=== PATIENT | female | born 1955 | race Caucasian/White ===

== ENCOUNTER 2021-12-16 13:57 | Outpatient (CLI) | payer MEDICARE, BC | END 2021-12-16 13:58 | disposition home or self-care (01) | LOC: BICULT 13:57 | PROVIDERS: ATTEND Urology | DX: N30.10 Interstitial cystitis (chronic) without hematuria (principal); R30.0 Dysuria; R35.0 Frequency of micturition; G89.4 Chronic pain syndrome; N28.89 Other specified disorders of kidney and ureter | CPT/HCPCS: 36415; 76770; 80048 ==

== ENCOUNTER 2022-01-29 12:01 | Outpatient (CLI) | payer MEDICARE, BC ==
[2022-01-29 13:39] LABS: Bilirubin Neg (Negative); Blood, Urine Negative (Negative); Clarity Clear (Clear); Glucose, Urine (Dipstick) Normal (Negative); Ketone, Urine Negative (Negative); Leukocyte 25 (Negative); Nitrite Negative (Negative); Protein, Urine (Dipstick) Negative (Neg-Trace); Specific Gravity, Urine 1.005 (1.002-1.036); Urobilinogen Normal mg/dL (Less than 2)
[2022-01-29 13:48] LABS: Mean Corpuscular HGB CONC 31.9 g/dL (32.0-36.0); Mean Corpuscular Volume 94.2 fl (81.6-98.3); Mean Platelet Volume 9.8 fl (7.4-10.4); Platelet Count 297 10x3/uL (150-450); RBC Distribution Width 14.3 % (11.5-14.5); Red Blood Cell (RBC) Count 4.33 10x6/uL (3.90-5.03); White Blood Cell (WBC) Count 7.2 10x3/uL (3.5-10.5)
[2022-01-29 13:55] LABS: Bacteria/HPF None Seen HPF (None Seen); RBC/HPF None Seen HPF (0-3); Squamous Epithelial 0-3 HPF (0-3); WBC/HPF None Seen HPF (0-3)
[2022-01-29 13:56] LABS: INR-International Normal Ratio 0.9; PTT 26.7 sec (22.0-33.0)
[2022-01-29 14:01] LABS: Anion Gap 13 mmol/L (10-20); BUN (Urea Nitrogen) 13 mg/dL (9.8-20.1); Calc. Creatinine Clearance 0 mL/min (70-130); Calcium 9.4 mg/dL (7.8-10.44); Carbon Dioxide 28 mmol/L (23-31); Chloride 105 mmol/L (98-107); Estimated GFR 74; Glucose 89 mg/dL (80-115); Potassium 4.5 mmol/L (3.5-5.1); Sodium 141 mmol/L (136-145)
== END 2022-01-29 12:02 | disposition home or self-care (01) ==
LOC: LABBT 12:01
PROVIDERS: ATTEND Urology
DX: Z01.818 Encounter for other preprocedural examination (principal); N30.10 Interstitial cystitis (chronic) without hematuria; N28.9 Disorder of kidney and ureter, unspecified; Z20.822 Contact with and (suspected) exposure to COVID-19
CPT/HCPCS: 80048; 81001; 85027; 85610; 85730; 87086; 87811; 93005; 93010

== ENCOUNTER 2022-02-01 13:15 | Outpatient (CLI) | payer MEDICARE, BC ==
[~2022-02-01 13:15] MED LIST: Magnevist 469MG/ML 20 ML VIAL ONE
== END 2022-02-01 13:16 | disposition home or self-care (01) ==
LOC: TBSIIMAG 13:15
PROVIDERS: ATTEND Urology
DX: N28.9 Disorder of kidney and ureter, unspecified (principal); Z88.9 Allergy status to unspecified drugs, medicaments and biological substances; K86.2 Cyst of pancreas
CPT/HCPCS: 74183; A9579

== ENCOUNTER 2022-02-03 05:40 | Day surgery (SDC) | payer MEDICARE, BC ==
[2022-02-02 09:21] VITALS: BMI 27.2
[2022-02-03] MEDS ORDERED: Midazolam HCl 2 mg/2 ml Vial ONE (06:40)
[2022-02-03] MEDS ORDERED: fentaNYL Citrate/PF 100 MCG/2 ML SYRINGE ONE (06:40)
[2022-02-03] MEDS ORDERED: SUGAMMADEX SODIUM 200 MG/2 ML VIAL ONE (07:02)
[2022-02-03] MEDS ORDERED: diphenhydrAMINE 50 MG/ML VIAL ONE (07:05)
[2022-02-03] MEDS ORDERED: Ioversol 68 % 50 ML VIAL ONE (07:11)
[2022-02-03] MEDS ORDERED: Scopolamine 1.5 mg/72 hour Patch ONE (07:13)
[2022-02-03] MEDS ORDERED: Levofloxacin 500 mg/D5W 100 ml Premix Bag ONE (07:19)
[2022-02-03] MEDS ORDERED: Phenylephrine 10 MG/ML VIAL ONE (07:28)
[2022-02-03] MEDS ORDERED: Ketorolac Tromethamine 30 MG/ML VIAL ONE (07:28)
[2022-02-03] MEDS ORDERED: PROPOFOL 200 MG/20 ML VIAL ONE (07:28)
[2022-02-03] MEDS ORDERED: Metoclopramide HCl 10 MG/2 ML VIAL ONE (07:28)
[2022-02-03] MEDS ORDERED: Rocuronium Bromide 10 MG/ML (10ML VIAL) ONE (07:28)
[2022-02-03] MEDS ORDERED: Lidocaine 1% MPF 2 ML VIAL ONE (07:28)
[2022-02-03] MEDS ORDERED: Ondansetron PF 4 MG/2 ML Vial ONE (07:28)
[2022-02-03] MEDS ORDERED: Dexamethasone 20 MG/5 ML VIAL ONE (07:28)
[2022-02-03] MEDS ORDERED: B & O ONE (07:30)
[2022-02-03] MEDS ORDERED: Phenazopyridine HCl 100 MG TAB ONE (08:23)
== END 2022-02-03 10:15 | disposition home or self-care (01) ==
LOC: SDC 05:40
PROVIDERS: ATTEND Urology
PROC: 0T5B8ZZ Destruction of Bladder, Via Natural or Artificial Opening Endoscopic (ICD-10-PCS; principal; 2022-02-03)
DX: N30.10 Interstitial cystitis (chronic) without hematuria (principal); N32.89 Other specified disorders of bladder; I10 Essential (primary) hypertension; E78.5 Hyperlipidemia, unspecified; G89.4 Chronic pain syndrome; M81.0 Age-related osteoporosis without current pathological fracture; K21.9 Gastro-esophageal reflux disease without esophagitis; N95.2 Postmenopausal atrophic vaginitis; N39.46 Mixed incontinence; Z79.84 Long term (current) use of oral hypoglycemic drugs; Z79.899 Other long term (current) drug therapy; Z88.2 Allergy status to sulfonamides; Z91.041 Radiographic dye allergy status
CPT/HCPCS: 88305; J1100; J1200; J1885; J1956; J2250; J2370; J2405; J2704; J2765; Q9967

== ENCOUNTER 2023-10-04 12:08 | Outpatient (CLI) | payer MEDICARE, BC | END 2023-10-04 12:09 | disposition home or self-care (01) | LOC: BICULT 12:08 | PROVIDERS: ATTEND Urology | DX: D17.71 Benign lipomatous neoplasm of kidney (principal); N30.10 Interstitial cystitis (chronic) without hematuria; N39.46 Mixed incontinence; R93.421 Abnormal radiologic findings on diagnostic imaging of right kidney | CPT/HCPCS: 76770 ==

== ENCOUNTER 2025-02-09 08:44 | Emergency (ER) | payer MEDICARE, BC ==
[2025-02-09] MEDS ORDERED: diphenhydrAMINE 50 MG/ML VIAL ONE (09:28)
[2025-02-09] MEDS ORDERED: Ondansetron PF 4 MG/2 ML Vial ONE (09:28)
[2025-02-09 09:30] LABS: #Basophils 0.03 10x3/uL (0.0-0.2); #Eosinophils 0.10 10x3/uL (0.0-0.7); #Monocytes 0.63 10x3/uL (0.11-0.59); #Neutrophils 6.40 10x3/uL (1.40-6.50); %Basophils 0.3 % (0.0-1.0); %Eosinophils 1.1 % (0.0-10.0); %Lymphocytes 19.9 % (21.0-51.0); %Monocytes 7.0 % (0.0-10.0); %Neutrophils 71.5 % (42.0-75.0); Hematocrit 39.1 % (36.0-47.0); Hemoglobin 12.5 g/dL (12.0-16.0); Mean Corpuscular Hemoglobin 29.9 pg (27.0-31.0); Mean Corpuscular Volume 93.5 fL (78.0-98.0); Platelet Count 247 10x3/uL (130-400); Red Blood Cell (RBC) Count 4.18 mill/uL (4.20-5.40); White Blood Cell (WBC) Count 8.96 10x3/uL (4.8-10.8)
[2025-02-09] MEDS ORDERED: Famotidine/PF 20 mg/2ml Vial ONE (09:32)
[2025-02-09 09:51] LABS: ALT (SGPT) 17 U/L (Less than 34); AST (SGOT) 24 U/L (11-34); Albumin 3.7 g/dL (3.1-4.5); Alkaline Phosphatase 108 U/L (40-110); Anion Gap 14 mmol/L (10-20); BUN (Urea Nitrogen) 19 mg/dL (9.8-20.1); Bilirubin, Total 0.6 mg/dL (0.3-1.2); Calc. Creatinine Clearance 0 mL/min (70-130); Calcium 9.2 mg/dL (7.8-10.44); Carbon Dioxide 26 mmol/L (23-31); Chloride 103 mmol/L (98-107); Globulin 2.9 g/dL (2.4-3.5); Glucose 100 mg/dL (80-115); Lipase 11 U/L (8-78); Potassium 3.8 mmol/L (3.5-5.1); Sodium 139 mmol/L (136-145)
[2025-02-09 10:21] LABS: Bacteria/HPF None Seen HPF (None Seen); CAUTI Indications for Culture Dysuria,urgency,freq; Glucose, Urine (Dipstick) Normal (Negative); Leukocyte Negative Leu/uL (Negative); Protein, Urine (Dipstick) Negative (Neg-Trace); RBC/HPF 0-3 HPF (0-3); Specific Gravity, Urine 1.009 (1.002-1.036); WBC/HPF 0-3 HPF (0-3)
[2025-02-09 10:24] LABS: Urine Culture Reflex No No
== END 2025-02-09 13:49 | disposition home or self-care (01) ==
LOC: ERS 08:44
DX: K56.41 Fecal impaction (principal); I10 Essential (primary) hypertension; E78.00 Pure hypercholesterolemia, unspecified; Z79.899 Other long term (current) drug therapy
CPT/HCPCS: 74019; 80053; 81001; 83690; 85025; J2270; J2405; J3010; 96374; 96375; J1200; J2919